=== PATIENT | male | born 1975 | race Caucasian/White ===

== ENCOUNTER 2022-11-18 15:59 | Emergency (ER) | payer OTHER, SELFPAY ==
[2022-11-18 16:06] VITALS: BP 131/87; PULSE 68; TEMP 36.6; O2SAT 98; BMI 23.6
--- NOTE | 2022-11-18 16:08 | XRR_ITS ---
PROCEDURE INFORMATION: Exam: XR Left Hand Exam date and time: 11/18/2022 4:17 PM Age: 47 years old Clinical indication: Injury or trauma; Other: Finger caught in machinery; Laceration; Little finger; Patient HX: Trauma to left 5th finger TECHNIQUE: Imaging protocol: Radiologic exam of the left hand. Views: 3 or more views. COMPARISON: No relevant prior studies available. FINDINGS: Bones/joints: There is a transverse displaced angulated fracture of the proximal metaphysis distal phalange 5th digit. Soft tissues: Diffuse soft tissue edema is seen in the distal aspect of the 5th digit There is soft tissue foreign bodies present near the distal 5th digit the largest component measures 1.7 mm. A smaller component is also visible measuring 0.6 mm. A small laceration is seen in near the distal phalange of the 5th digit XR/XR hand LT min 3V* [id number] IMPRESSION: 1. Transverse displaced angulated fracture of the distal phalange of the 5th digit. 2. Soft tissue edema distal aspect of the 5th digit 3. Soft tissue laceration and foreign body distal 5th digit
--- NOTE | 2022-11-18 17:32 | W.ED.EXTPRO ---
HPI - Extremity Problem General: Chief complaint: Extremity Injury, Upper Stated complaint: left pinky vac Time Seen by Provider: 11/18/22 16:14 Source: patient Mode of arrival: ambulatory Limitations: no limitations History of Present Illness: Patient presents to the emergency department this evening for evaluation treatment of left fifth finger injury just prior to arrival. Patient states that he was helping a friend get a car on a trailer when, his finger got stuck between the brake and the rim of the vehicle. Bleeding is controlled with direct pressure. He reports his tetanus immunization is up-to-date. Review of Systems General: Reports: 10 or more systems reviewed and unremarkable except in HPI and below Physical Exam Const: COMMON NORMALS: no acute distress, patient oriented x3 and alert HENMT: COMMON NORMALS: normocephalic, atraumatic and hearing grossly normal bilaterally HEAD & SCALP: normocephalic and atraumatic Eye: COMMON NORMALS: Equal, round and reactive pupils present, EOMs intact bilaterally and conjunctivae normal CONJUNCTIVA: Yes conjunctivae normal PUPIL: Yes Equal, round and reactive pupils present Neck/C-Spine: COMMON NORMALS: full ROM and no JVD Lymph: LYMPHATIC: no lymphadenopathy noted Resp: COMMON NORMALS: normal respiratory effort, No retractions and No use of accessory muscles Cardio: COMMON NORMALS: no JVD and regular rate RATE: regular rate Extremity: NARRATIVE EXTREMITY EXAM: Patient's left fifth digit shows a laceration on the posterior, distal end of the finger. Laceration goes from the medial side extending to the lateral side and, affects the area of the nail matrix. Patient's nail is still adhered to the nailbed but, nail is distal to the laceration where the fingertip is loose. Patient still has sensation and movement of the finger though he indicates pain and discomfort. Neuro: COMMON NORMALS: patient oriented x3 SENSORIUM/ORIENTATION: Yes alert Psych: COMMON NORMALS: mental status grossly normal, Normal thought process present, cooperative and normal affect THOUGHT PROCESS: Normal thought process present Skin: COMMON NORMALS: no rashes or lesions noted and turgor normal GENERAL SKIN EXAM: no rashes or lesions noted and turgor normal Procedures Laceration Laceration 1: Site: hand Side (If applicable): left Size (cm): 2 Depth: simple, single layer Local Anesthetic: lidocaine 1% Amount of anesthesia used (mL): 4 Skin layer closed with: nylon Size (cm): 4-0 Number of sutures: 5 Technique: simple, interrupted Course Vital Signs: Vital signs: Vital Signs Temperature 98 F 11/18/22 16:06 Pulse Rate 68 11/18/22 16:06 Blood Pressure 131/87 11/18/22 16:06 Pulse Oximetry 98 11/18/22 16:06 Oxygen Delivery Me thod Room Air 11/18/22 16:06 MDM - Extremity (Nontraumatic) Medical Decision Making Patient's evaluation was originally started by Minerva Townsend NP who had ordered the patient an IM injection of Ancef and [place] after seeing his x-ray and realizing patient had an open fracture. I soon took over the patient's care and, nursing notified me that the patient is refusing his IM Ancef. I did speak with the patient about his open fracture and the concern for osteomyelitis should infection be left unchecked. Patient indicated he had amoxicillin at home that he could take. Explained to him that I would prefer he take a different antibiotic to prevent skin and bone infection in his finger. He was willing to take a different antibiotic but, still refused the IM injection here in the emergency room. Patient also refused his pain medication though he was requesting something for pain upon his arrival. Patient received a ring block with good anesthesia achieved. I irrigated the patient's open wound as deeply as possible using a syringe and Betadine. Irrigated with approximately 200 cc of sterile saline mixed with Betadine. Patient tolerated cleaning with minimal difficulty. Patient received 5 nylon sutures in a simple interrupted fashion and wound was bandaged, immobilized with a finger brace, and referral to orthopedics initiated on his behalf. Explained to the patient the importance that he have his follow-up given the type of fracture he received and, given that he does still run the risk of infection in the deeper layers in the bone from his injury. Differential Diagnosis Likely cellulitis (Fracture, open fracture, nailbed avulsion, nail matrix avulsion, crush injury) Lab Data Radiology Impressions Hand X-Ray 11/18/22 16:08 IMPRESSION: 1. Transverse displaced angulated fracture of the distal phalange of the 5th digit. 2. Soft tissue edema distal aspect of the 5th digit 3. Soft tissue laceration and foreign body distal 5th digit Discharge Plan Discharge Patient Disposition: Home Clinical Impression: Open fracture of phalanx of finger of left hand Condition: Stable Prescriptions: New cephalexin 500 mg capsule 500 mg PO Q6H 10 Days Qty: 40 0RF Discharge Orders: Discharge ED (Routine); Ordered 11/18/22 Ordered By: Ana Palomares Discharge Diet: Usual diet Discharge Activity: Limit activity as instructed Patient Instructions: Fractures - Phalanx (Finger) Activity Restrictions/Additional Instructions: X-ray today shows a fracture of the proximal end of your distal phalanx of your left fifth finger. This is an open fracture given the overlying wound to your nail and skin. We irrigated your wound with syringes of sterile saline and Betadine here in the emergency department. We reapproximated the laceration of the end of your finger using 5 nonabsorbable sutures which need to be removed in approximately 10 days. We are placing you into a finger splint to be worn at all times except for bandage changes and wound cleanings. You need to clean the wound twice a day with warm water and a mild soap. We recommend applying clean bandaging after each wound cleaning and reapplying your finger brace. We have also referred you on to orthopedics for recheck as we need to make sure that this fracture heals and there is no signs of any development of infection of the bone. We are starting you on oral antibiotics for the next 10 days which need to be taken as prescribed in its entirety. If in the meantime you have any concerns of infection you need to be seen and reevaluated in the ER. 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
--- NOTE | 2022-11-19 10:11 | DCPLANNER ---
Addendum entered by Violetta Sanchez 11/23/22 09:46: Patient had a follow up appointment scheduled with ortho - patient did attend appointment. Addendum entered by Violetta Sanchez 11/20/22 13:42: Patient has a follow up appointment scheduled for , November 22, 2022 at 9:30 with Mateo Velez at ortho. Original Note: amusement centre manager had message to schedule a follow up appointment for patient with ortho. amusement centre manager sent patients information to the front office staff at ortho. Patients information will be printed and reviewed. Clinic will call patient with appointment information.
--- NOTE | 2022-11-23 11:19 | DCPLANNER ---
completion manager called patient due to no primary care physician - patient states that he sees Dr. Kim.
== END 2022-11-18 18:36 | disposition home or self-care (01) ==
PROVIDERS: Emergency Provider Physician Assistant; PCP Family Medicine
DX: S62.637B Displaced fracture of distal phalanx of left little finger, initial encounter for open fracture (principal); W23.0XXA Caught, crushed, jammed, or pinched between moving objects, initial encounter
CPT/HCPCS: 73130; 99283

== ENCOUNTER → 2022-11-29 09:25 | Outpatient (BNVA) | payer OTHER, SELFPAY | PROVIDERS: Visit Provider Nurse Practitioner Family | DX: S92.312D Displaced fracture of first metatarsal bone, left foot, subsequent encounter for fracture with routine healing (principal); S92.322D Displaced fracture of second metatarsal bone, left foot, subsequent encounter for fracture with routine healing; W23.0XXD Caught, crushed, jammed, or pinched between moving objects, subsequent encounter | CPT/HCPCS: 73130 ==

== ENCOUNTER 2022-12-09 08:44 | Emergency (ER) | payer OTHER, SELFPAY ==
[2022-12-09 09:01] VITALS: BP 130/87; PULSE 73; RESP 14; O2SAT 100
--- NOTE | 2022-12-09 09:23 | PC.NURSE ---
This nurse (Mateo Bah) is unable to assume care for this patient as I am with a more critical patient. Charge nurse (Shirin) informed.
[2022-12-09] MEDS: erythromycin Op Oint 1 gm 1 APPLIC EYE-LEFT (10:12)
[2022-12-09 10:13] VITALS: BP 130/87; PULSE 73; RESP 14; O2SAT 100
--- NOTE | 2022-12-09 17:45 | ED_ITS ---
HPI - Eye Problem General: Chief complaint: Eye Problems Stated complaint: something in eye Time Seen by Provider: 12/09/22 08:48 Source: patient Mode of arrival: ambulatory Limitations: no limitations History of Present Illness: Patient presents to the emergency department today for evaluation treatment of concerns for retained foreign body in his left eye. Patient states that couple of days ago he was working with some metal and felt a piece of metal bounced off his safety glasses and into his left eye. He states that this happens quite a bit and he is typically able to irrigate his eye without difficulty. However, he has been irrigating the eye but believes he still has metal in it as it is still quite irritated. Patient denies photophobia or headache. Patient does not wear contact lenses. Patient does have an home health specialist as he had herpes zoster in the past. Review of Systems General: Reports: 10 or more systems reviewed and unremarkable except in HPI and below Physical Exam Const: COMMON NORMALS: no acute distress, patient oriented x3 and alert Eye: COMMON NORMALS: Equal, round and reactive pupils present and EOMs intact bilaterally CONJUNCTIVA: Yes conjunctival abnormal (Mild left conjunctival injection) PUPIL: Yes Equal, round and reactive pupils present OTHER: Patient has obvious speck of metal in the cornea approximately 2:00 as visible on hand-held ophthalmoscope. Patient also has obvious corneal ulcer visible with the naked eye. However, patient's Wood lamp examination showed a significant corneal abrasion/ulceration to the lateral one third of the cornea without other findings of conjunctival abrasion. Neck/C-Spine: COMMON NORMALS: no JVD Lymph: LYMPHATIC: no lymphadenopathy noted Resp: COMMON NORMALS: normal respiratory effort, No retractions and No use of accessory muscles Cardio: COMMON NORMALS: no JVD and regular rate RATE: regular rate : COMMON NORMALS: Yes no CVA tenderness BLADDER/KIDNEY EXAM: Yes no CVA tenderness Back/Pelvis: COMMON NORMALS: no CVA tenderness, thoracic and lumbar spine normal to inspection and thoraco-lumbar ROM normal Extremity: COMMON NORMALS: normal to inspection, full ROM and no pedal edema Neuro: COMMON NORMALS: patient oriented x3 SENSORIUM/ORIENTATION: Yes alert Skin: COMMON NORMALS: no rashes or lesions noted and turgor normal GENERAL SKIN EXAM: no rashes or lesions noted and turgor normal Course Vital Signs: Vital signs: Vital Signs Pulse Rate 73 12/09/22 10:13 Respiratory Rate 14 12/09/22 10:13 Blood Pressure 130/87 12/09/22 10:13 Pulse Oximetry 100 12/09/22 10:13 Oxygen Delivery Me thod Room Air 12/09/22 09:01 MDM - Eye Problem Medical Decision Making Patient's eye examination shows small retained foreign body without signs of rust ring. There is also an ulceration of the cornea visible with the naked eye. Confirmation with Leyva lamp examination. Saline soaked Q-tip was used to try and remove foreign body however, was not able to be removed and, due to the surrounding ulceration did not attempt any further removal at this time. Patient was started on erythromycin ointment and given an eye patch. He was also given a short course of medicine for pain. Patient is to call his home health specialist first thing in the morning to have follow-up in the next 24 to 36 hours. A note to case management regarding this request was also sent. Differential Diagnosis Likely corneal abrasion (Retained foreign body), conjunctivitis, acute iritis, subconjunctival hemorrhage and corneal ulcer Discharge Plan Discharge Patient Disposition: Home Clinical Impression: Corneal ulcer of left eye, Foreign body in cornea, left eye, initial encounter Condition: Stable Prescriptions: New erythromycin 5 mg/gram (0.5 %) ointment 1 applic ophthalmic (eye) QID Qty: 3.5 0RF Rx Instructions: apply a 0.5in ribbon of ointment to left eye 4 times a day Discharge Orders: Discharge ED (Routine); Ordered 12/09/22 Ordered By: Ana Palomares Discharge Diet: Usual diet Discharge Activity: Increase activity as tolerated Patient Instructions: Eye Foreign Body (ED), Corneal Ulcer (ED) Activity Restrictions/Additional Instructions: Examination today reveals a large area of ulceration to your left cornea. There is still small foreign body present in the eye as well. You are starting you on antibiotics today and encourage you to keep your eye covered with an eye patch. While we have sent a notice to our retail coordinator of your need for follow- up through ophthalmology, we do recommend calling your home health specialist first thing in the morning to be seen as soon as possible as corneal ulcers can cause significant and even permanent eye damage. 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
--- NOTE | 2022-12-10 12:42 | DCPLANNER ---
Addendum entered by Violetta Sanchez 12/10/22 14:55: manager risk management called to confirm that Dr. Cortez office received patients information. manager risk management was told that facility did receive patients information, will review and call patient with appointment information. Original Note: manager risk management had message to schedule a follow up appointment for patient with opthamology for corneal ulcer with foreign body in left eye. manager risk management faxed patients information to the office of Dr. Cortez. Patients information will be reviewed, clinic will call patient with appointment information.
--- NOTE | 2022-12-16 13:52 | DCPLANNER ---
industrial organization manager called patient due to no primary care physician - patient states that he sees Dr. Kim.
== END 2022-12-09 10:15 | disposition home or self-care (01) ==
PROVIDERS: Emergency Provider Physician Assistant; PCP Family Medicine
DX: H16.002 Unspecified corneal ulcer, left eye (principal); T15.92XA Foreign body on external eye, part unspecified, left eye, initial encounter; X58.XXXA Exposure to other specified factors, initial encounter
CPT/HCPCS: 99283